=== PATIENT | female | born 1965 | race African-American/Black ===

== ENCOUNTER 2021-09-26 19:14 | Emergency (ER) | payer OTHER ==
[2021-09-26 19:25] VITALS: BP 150/78; PULSE 96; TEMP 98; BMI 42.9
[2021-09-26] MEDS ORDERED: IBUPROFEN 600 MG TABLET (FP) PO ONE ×3 (19:56→20:10)
[2021-09-26] MEDS ORDERED: diazePAM 2 MG TABLET PO ONE (19:56)
[2021-09-26] MEDS ORDERED: diazePAM 2 MG TABLET ONE ×2 (20:08→20:16)
[2021-09-26] MEDS ORDERED: diazePAM 5 MG TABLET ONE (20:10)
== END 2021-09-26 21:14 | disposition home or self-care (01) ==
LOC: JER 19:14
DX: M54.50 Low back pain, unspecified (principal); V49.40XA Driver injured in collision with unspecified motor vehicles in traffic accident, initial encounter
CPT/HCPCS: 72070-TC-FY; 72100-TC-FY; 99283-25